=== PATIENT | female | born 1990 | race Caucasian/White ===

== ENCOUNTER 2017-07-28 15:36 | Emergency (ER) | payer OTHER ==
[~2017-07-28] VITALS: Ht 167.6 cm; Wt 86.3 kg
[~2017-07-28 15:36] MED LIST: LISI-729 PO
[2017-07-28 15:44] VITALS: TEMP 36.8; Ht 167.6 cm; Wt 86.3 kg
[2017-07-28] MEDS ORDERED: SODIUM CHLORIDE 0.9% 1000ML 1,000 ML IV STA (15:57)
[2017-07-28] MEDS ORDERED: LABE100T23 PO (16:29)
[2017-07-28 16:31] LABS: BASO % 0.4 %; BASO ABS # 0.04 K/uL (0-0.2); COMPLETE YES; EOS % 2.3 %; HEMATOCRIT 48.2 % (37-47); IG% 0.3 %; LYMPH % 28.8 %; LYMPH ABS # 2.91 K/uL (1.2-3.4); MEAN CELL VOLUME 93.2 fL (80-100); MEAN CORPUSCULAR HEMOGLOBIN 30.6 pg (25-34); MEAN CORPUSCULAR HGB CONC 32.8 g/dl (32-36); MEAN PLATELET VOLUME 9.4 fL (7.4-10.4); MONO % 6.2 %; PLATELET COUNT 272 K/uL (130-400); RED BLOOD COUNT 5.17 M/uL (4.2-5.4); WHITE BLOOD COUNT 10.09 K/uL (4.8-10.8)
[2017-07-28 16:52] LABS: BLOOD UREA NITROGEN 8 mg/dl (7-18); BUN/CREATININE RATIO 9.5 (10-20); CALCIUM 9.5 mg/dl (8.5-10.1); CARBON DIOXIDE 25 mmol/L (21-32); CHLORIDE 106 mmol/L (98-107); CREATININE 0.79 mg/dl (0.60-1.20); GLUCOSE 96 mg/dl (70-99); POTASSIUM 3.4 mmol/L (3.5-5.1); SODIUM 138 mmol/L (136-145)
--- NOTE | 2017-07-28 17:01 | DIAGNOSTIC IMAGING REPORT ---
CHEST ONE VIEW PORTABLE CLINICAL HISTORY: Chest Pain pain COMPARISON STUDY: 03/14/2016 FINDINGS: The bones soft tissues and hemidiaphragms are normal. The cardiomediastinal silhouette is normal. The lungs are clear. The pulmonary vasculature is normal. IMPRESSION: Negative chest. The above report was generated using voice recognition software. It may contain grammatical, syntax or spelling errors. Electronically signed by: Hector Rhodes M.D. 07/28/2017 5:00 PM Dictated Date/Time: 07/28/2017 5:00 PM
[2017-07-28 19:10] VITALS: BP 104/69; PULSE 67; O2SAT 98
--- NOTE | 2017-07-28 19:20 | EMERGENCY ROOM VISIT NOTE ---
History Report prepared by Siva: Tye Ohara Under the Supervision of: Dr. Giovanni Ellsworth D.O. First contact with patient: 15:45 Chief Complaint: CHEST PAIN Stated Complaint: CHEST PAINS, HIGH BP History of Present Illness The patient is a 26 year old female who presents to the Emergency Room with complaints of constant chest tightness starting this morning around 1000. The patient additionally states that she has been having a high blood pressure last night and today, and it was 168/110. She additionally is complaining of light headedness and intermittent shortness of breath. The patient states that the pain is worsened with walking around. She states that she has a history of hypertension. Patient denies diabetes, hyperlipidemia, CAD, and history of sudden at a young age. She states that she just switched from lisinopril to a new blood pressure medication, and she states that she missed a dose yesterday of the night before. She states that she occasionally smokes, and she is currently on her period. Patient denies swelling of calves, recent trips, history of immobilization or recent surgery, prior history of DVT, hemoptysis, history of malignancy, or control/estrogen use. Source of History: patient Onset: 1000 Position: chest Quality: other (tightness) Timing: constant Modifying Factors (Worsening): other (walking around) Associated Symptoms: + SOB Note: Associated symptoms: light headedness Review of Systems See HPI for pertinent positives & negatives. A total of 10 systems reviewed and were otherwise negative. Past Medical & Surgical Medical Problems: (1) No pertinent past medical history Social History Problems: (1) IUD (intrauterine device) in place Family History Patient reports no known family medical history. Social History Smoking Status: Current Every Day Smoker Drug Use: none Current/Historical Medications Scheduled Labetalol Hcl (Labetalol Hcl), 100 MG PO BID Allergies Coded Allergies: Adhesives (Verified Allergy, RASH, 09/19/13) patient does not recall what type of tape caused her reaction Physical Exam Vital Signs Date Time Temp Pulse Resp B/P (MAP) Pulse Ox O2 Delivery O2 Flow Rate FiO2 07/28/17 19:10 67 18 104/69 98 07/28/17 17:24 70 07/28/17 17:24 70 18 104/60 98 Room Air 07/28/17 16:00 Room Air 07/28/17 15:44 36.8 76 20 138/88 97 Room Air Physical Exam GENERAL: Sitting up in bed, alert, well appearing, well nourished, no distress, non-toxic EYE EXAM: normal conjunctiva, PERRL and EOM's intact OROPHARYNX: no exudate, no erythema, lips, buccal mucosa, and tongue normal and mucous membranes are moist NECK: supple, no nuchal rigidity, no adenopathy, non-tender LUNGS: Clear to auscultation. Normal chest wall mechanics HEART: no murmurs, S1 normal and S2 normal ABDOMEN: abdomen soft, non-tender, normo-active bowel sounds, no masses, no rebound or guarding. BACK: Back is symmetrical on inspection and there is no deformity, no midline tenderness, no CVA tenderness. SKIN: no rashes and no bruising UPPER EXTREMITIES: upper extremities are grossly normal. LOWER EXTREMITIES: No pitting edema. Calves are equal bilaterally NEURO EXAM: Normal sensorium, cranial nerves II-XII intact, normal speech, no weakness of arms, no weakness of legs. No drift. Finger to nose intact. Sensation intact. Rapid alternating movement of the upper extremity intact. Medical Decision & Procedures ER Provider Diagnostic Interpretation: Radiology results as stated below per my review and the radiologist's interpretation: CHEST ONE VIEW PORTABLE CLINICAL HISTORY: Chest Pain pain COMPARISON STUDY: 03/14/2016 FINDINGS: The bones soft tissues and hemidiaphragms are normal. The cardiomediastinal silhouette is normal. The lungs are clear. The pulmonary vasculature is normal. IMPRESSION: Negative chest. The above report was generated using voice recognition software. It may contain grammatical, syntax or spelling errors. Electronically signed by: Hector Rhodes M.D. 07/28/2017 5:00 PM Dictated Date/Time: 07/28/2017 5:00 PM Laboratory Results 07/28/17 16:00 Red Blood Count 5.17, Mean Corpuscular Volume 93.2, Mean Corpuscular Hemoglobin 30.6, Mean Corpuscular Hemoglobin Concent 32.8, Mean Platelet Volume 9.4, Neutrophils (%) (Auto) 62.0, Lymphocytes (%) (Auto) 28.8, Monocytes (%) (Auto) 6.2, Eosinophils (%) (Auto) 2.3, Basophils (%) (Auto) 0.4, Neutrophils # (Auto) 6.25, Lymphocytes # (Auto) 2.91, Monocytes # (Auto) 0.63, Eosinophils # (Auto) 0.23, Basophils # (Auto) 0.04 07/28/17 16:00 Test 07/28/17 16:00 07/28/17 18:17 White Blood Count 10.09 K/uL (4.8-10.8) Red Blood Count 5.17 M/uL (4.2-5.4) Hemoglobin 15.8 g/dL (12.0-16.0) Hematocrit 48.2 % (37-47) Mean Corpuscular Volume 93.2 fL (80-100) Mean Corpuscular Hemoglobin 30.6 pg (25-34) Mean Corpuscular Hemoglobin Concent 32.8 g/dl (32-36) Platelet Count 272 K/uL (130-400) Mean Platelet Volume 9.4 fL (7.4-10.4) Neutrophils (%) (Auto) 62.0 % Lymphocytes (%) (Auto) 28.8 % Monocytes (%) (Auto) 6.2 % Eosinophils (%) (Auto) 2.3 % Basophils (%) (Auto) 0.4 % Neutrophils # (Auto) 6.25 K/uL (1.4-6.5) Lymphocytes # (Auto) 2.91 K/uL (1.2-3.4) Monocytes # (Auto) 0.63 K/uL (0.11-0.59) Eosinophils # (Auto) 0.23 K/uL (0-0.5) Basophils # (Auto) 0.04 K/uL (0-0.2) RDW Standard Deviation 46.0 fL (36.4-46.3) RDW Coefficient of Variation 13.5 % (11.5-14.5) Immature Granulocyte % (Auto) 0.3 % Immature Granulocyte # (Auto) 0.03 K/uL (0.00-0.02) D-Dimer 300 ug/L FEU (0-500) Anion Gap 7.0 mmol/L (3-11) Est Creatinine Clear Calc Drug Dose 119.4 ml/min Estimated GFR () 119.7 Estimated GFR (Non- 103.3 BUN/Creatinine Ratio 9.5 (10-20) Calcium Level 9.5 mg/dl (8.5-10.1) Troponin I < 0.015 ng/ml (0-0.045) Laboratory results per my review. Medications Administered Medications (Trade) Dose Ordered Sig/Marcio Route Start Time Stop Time Status Last Admin Dose Admin Sodium Chloride 1,000 ml @ 999 mls/hr Q1H1M STAT IV 07/28/17 15:57 07/28/17 16:57 DC 07/28/17 16:08 999 MLS/HR ECG Indication: chest pain Rate (beats per minute): 58 Rhythm: sinus bradycardia Findings: no ectopy, other (normal axis) ED Course ED COURSE: Vital signs were reviewed and showed situational hypertension The patients medical record was reviewed The above diagnostic studies were performed and reviewed. ED treatments and interventions as stated above. 1545: The patient was evaluated in room B2. A complete history and physical examination was performed. 1557: Sodium Chloride 1000 ml @ 999 mls/hr IV 1740: I reevaluated the patient, and she states that she is feeling significantly better, and she is back at her baseline. 1900: Upon reevaluation, the patient is feeling better.I discussed my findings with the patient and She understands and agrees with the treatment plan. Based on the patients age, coexisting illnesses, exam and lab findings the decision to treat as an outpatient was made. The patient remained stable while under my care. The patient appeared well at the time of discharge. Medical Decision Differential diagnoses includes but is not limited to acute coronary syndrome, myocardial infarction, pericarditis, pulmonary embolus, aortic dissection, pneumonia, pneumothorax, musculoskeletal, shingles, esophageal. Patient is a 26-year-old female who presents to ER for lightheadedness and left- sided chest pain which started at 10 AM today. She has a history of hypertension and is a smoker. CBC all BMP is unremarkable. Troponins were negative 2. D-dimer was negative. Chest x-ray unremarkable. EKG nondiagnostic. Patient was given fluids and Toradol and felt better. Patient has no significant cardiac or PE risk factors. With her unremarkable workup she was discharged follow-up with PCP. Blood pressure did trend down as I do feel there is component of anxiety. Neurologic exam was completely intact. Discussed with Pt concerning signs and symptoms to watch out for. Pt was instructed to follow up with their PCP and discussed with the patient their option to return to the ED at anytime for persistent or worsening symptoms. The appropriate anticipatory guidance and out-patient management, including indications for return to the emergency department, were explained at length to the patient and understood. Medication Reconcilliation Current Medication List: was personally reviewed by me Blood Pressure Screening Patient's blood pressure: Elevated blood pressure Blood pressure disposition: Elevated BP felt to be situational Impression Primary Impression: Precordial chest pain Additional Impression: HTN (hypertension) Scribe Attestation The scribe's documentation has been prepared under my direction and personally reviewed by me in its entirety. I confirm that the note above accurately reflects all work, treatment, procedures, and medical decision making performed by me. Departure Information Dispostion Home / Self-Care Referrals Tom Calles D.O. (PCP) Forms HOME CARE DOCUMENTATION FORM, IMPORTANT VISIT INFORMATION Patient Instructions Chest Pain - [facility], [place], ED HTN Established, My [facility] Additional Instructions Please follow up with your primary care doctor or if you are a student, [facility] with in the next 24 hours. Any worsening of your symptoms, please return to the ED immediately. This includes any fevers greater than 100.4, worsening pain, chest pain, shortness breath, persistent nausea, vomiting, unable to eat or drink, or any other concerning signs or symptoms from your standpoint. You were found to have a blood pressure greater than 120 systolic over 90 diastolic. Due to the new Medicare guidelines, we are now recommending that you follow up with your primary care doctor in regards to this elevated blood pressure. Problem Qualifiers Additional Impression: HTN (hypertension) Hypertension type: unspecified Qualified Codes: I10 - Essential (primary) hypertension
== END 2017-07-28 19:11 | disposition home or self-care (01) ==
LOC: C.EDB 15:37
DX: R07.2 Precordial pain (principal); I10 Essential (primary) hypertension; F17.210 Nicotine dependence, cigarettes, uncomplicated; Z79.899 Other long term (current) drug therapy